=== PATIENT | female | born 1950 | race Caucasian/White ===

== ENCOUNTER 2023-04-09 12:27 | Emergency (ER) | payer MEDICARE, SELFPAY ==
--- NOTE | ~2023-04-09 | XR_ITS ---
XR knee LT 3V 04/09/2023 13:17 Indication: Medial left knee pain Procedure: 3 views left knee Comparison: No prior studies for comparison. Findings: There is a osteochondral defect involving the medial femoral condyle. No significant joint space narrowing. 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 Small joint effusion. There is a probable nondisplaced fracture involving the medial femoral condyle posteriorly. Impression: 1: Osteochondral defect medial femoral condyle with probable associated fracture posterior medially. Reviewed, dictated and finalized at location A. Impression: 1: Osteochondral defect medial femoral condyle with probable associated fractur e posterior medially.
[2023-04-09 12:49] VITALS: BP 126/75; PULSE 62; RESP 18; TEMP 36.4; O2SAT 95
--- NOTE | 2023-04-09 13:02 | ED.LOWEXIN ---
HPI - Extremity Injury (Lower) General Chief Complaint: Extremity Injury, Lower Stated Complaint: knee pain Time Seen by Provider: 04/09/23 13:01 History of Present Illness HPI Narrative: Patient is a 73-year-old female here with left knee pain after a fall that occurred 1 week ago. Patient states that she was ambulating at home and felt like she was falling to the right so she overcorrected and started falling and hit her medial aspect of her left knee on a nightstand. She notes that she crumpled to the ground but was able to get up and ambulate throughout the week this week. She is using ibuprofen and icing the knee without improvement. Pain is worse with walking and with moving as well as with touching the knee. She did attempt to call an orthopedic office and noted that she needed to come into the emergency department for evaluation prior to being seen in their office. She denies any prior surgeries on this knee. She denies any known medical problems. No blood thinner use. Related Data Allergies Allergy/AdvReac Type Severity Reaction Status Date / Time No Known Allergies Allergy Unknown Verified 04/09/23 12:57 Review of Systems Review of Systems: CONSTITUTIONAL: Denies fever, chills, or sweats. CARDIOVASCULAR: Denies chest pain, palpitations RESPIRATORY: Denies cough or dyspnea. GASTROINTESTINAL: Denies abdominal pain, nausea, vomiting SKIN: Laceration or wound on the knee MUSCULOSKELETAL: Left knee pain, Denies back pain NEUROLOGIC: Denies headache, numbness, or weakness. Exam Narrative: GENERAL: Well-appearing, well-nourished, and in no acute distress. HEAD: Normocephalic, atraumatic. EYES: PERRLA and EOMI. ENT: Nares clear. Mucous membranes moist. NECK: Supple. CHEST: Clear to auscultation. No respiratory distress. HEART: Regular rate and rhythm. Normal peripheral pulses. ABDOMEN: Soft, nontender, nondistended. EXTREMITIES: patient has isolated tenderness to the medial aspect of her left knee, joint effusion appreciated, she does have normal range of motion no hip, femoral shaft, tib-fib tenderness, no ankle tenderness. Normal PMS distal to injury. SKIN: Warm, dry, no rash. NEURO: No focal deficits. Alert and oriented x3. Course Course Emergency Course: Chart review performed. Patient here with left knee pain after an injury about 1 week ago. Triage vitals within normal limits. Xray ordered. Patient seen evaluated, isolated left knee injury to the medial aspect of the knee. Differential includes fracture, ligamentous injury, joint effusion. She does have normal range of motion has been able to bear weight throughout the week this week. Will do x-rays, pain medication, likely referral to orthopedic surgery. X-ray read reads small joint effusion, osteochondral defect involving the medial femoral condyle with concern for nondisplaced fracture involving the medial femoral condyle posteriorly. Will place in knee immobilizer and refer to orthopedic surgery urgently. The results of pertinent diagnostic studies and exam findings were discussed. The patient?s provisional diagnosis and plan of care were discussed with the patient and present family. The patient and/or present family expressed understanding of the diagnosis and plan. The nurse was instructed to provide written instructions and appropriate follow-up information. The patient understands their need and responsibility to obtain additional follow-up as instructed. The risks of medications administered and prescribed were discussed with the patient and family present. Vital Signs Vital signs: Vital Signs Temperature 97.5 F L 04/09/23 12:49 Pulse Rate 62 04/09/23 12:49 Respiratory Rate 18 04/09/23 12:49 Blood Pressure 126/75 04/09/23 12:49 Pulse Oximetry 95 04/09/23 12:49 Oxygen Delivery Room Air 04/09/23 12:49 Temperature 97.5 F L 04/09/23 12:49 Pulse Rate 62 04/09/23 12:49 Respiratory Rate 18 04/09/23 12:4
[2023-04-09] MEDS: IBUPROFEN 600 MG TABLET PO (13:59)
[2023-04-09] MEDS: ACETAMINOPHEN 325 MG TABLET 650 MG PO (14:00)
== END 2023-04-09 14:20 | disposition home or self-care (01) ==
PROVIDERS: Emergency Provider Student in an Organized Health Care Education/Training Program; PCP Internal Medicine
DX: S72.435A Nondisplaced fracture of medial condyle of left femur, initial encounter for closed fracture (principal); W01.190A Fall on same level from slipping, tripping and stumbling with subsequent striking against furniture, initial encounter
CPT/HCPCS: 73562; 99284; A9270

== ENCOUNTER 2023-04-19 13:38 | Outpatient (CLI) | payer MEDICARE, SELFPAY ==
--- NOTE | ~2023-04-19 | CT_ITS ---
Noncontrast CT scan of the left knee CLINICAL HISTORY: Fracture TECHNIQUE: Axial noncontrast imaging of the left knee was performed. Sagittal and coronal reformatted images were constructed. Dose reduction technique was used on this scan by utilizing automated expos ure control and iterative reconstruction technique. The dose-length product (DLP) was 624.96 mGy-cm. Correlation made with plain radiographs dated 04/09/2023 and 04/13/2023. Findings: There is an osteochondral fragment/defect along the posterior aspect of the medial femoral condyle, measuring approximately 1.3 x 1.8 cm in extent. There is a prominent area of subjacent heter ogeneity in the medial femoral condyle, with areas of sclerosis and lucency, with a thin sclerotic ma rgin overall about this region. Lateral femoral condyle and proximal tibia are unremarkable. Patella is unremarkable. Small joint effusion is present. Visualized musculature is unremarkable. Subcutaneous soft tissues ar e unremarkable. IMPRESSION: Osteochondral fragment along the posterior aspect of the medial femoral condyle, as detailed above, w ith subjacent area of mixed sclerosis and lucency in the medial femoral condyle. Overall appearance i s probably most consistent with an initial underlying subchondral insufficiency fracture, which has p rogressed to osteochondral fragment and osteonecrosis. Small joint effusion. Reviewed, dictated and finalized at location M. IMPRESSION: Osteochondral fragment along the posterior aspect of the medial femoral condyle , as detailed above, with subjacent area of mixed sclerosis and lucency in the medial femoral condyle. Overall appearance is probably most consistent with an initial underlying subchondral insufficiency fracture, which has progressed to osteochondral fragment and osteonecrosis. Small joint effusion.
== END 2023-04-19 13:39 | disposition home or self-care (01) ==
LOC: ANHIMG 13:41
PROVIDERS: PCP Internal Medicine; Visit Provider Orthopaedic Surgery
DX: S72.412A Displaced unspecified condyle fracture of lower end of left femur, initial encounter for closed fracture (principal); X58.XXXA Exposure to other specified factors, initial encounter
CPT/HCPCS: 73700